=== PATIENT | male | born 2000 | race Caucasian/White ===

== ENCOUNTER 2025-06-10 21:35 | Emergency (ER) | payer BC, SELFPAY ==
--- NOTE | ~2025-06-10 | CT_ITS ---
CT abdomen pelvis wo con INDICATION:MIDDLE LOWER abdo pain/migrating downward . COMPARISON: None. TECHNIQUE: Axial 2.5 mm images of the abdomen were obtained without IV or oral contrast. Diagnostic sensitivity is limited due to lack of IV contrast. FINDINGS: The lung bases are clear. The liver parenchyma is unremarkable. No intrahepatic mass or ductal dilatation is evident. The gallbladder is unremarkable. The pancreas and spleen are normal in appearance. The adrenal glands are symmetric in size. The kidneys are unremarkable. No intrarenal stones are noted. There is no hydronephrosis. Evaluation of the stomach and bowel loops are limited due to lack of oral contrast. There is an appendicolith at the base of the appendix. Thickened edematous appendix measures 12.6 mm consistent with acute appendicitis. No free air or free fluid. The bladder and rectum are normal. No free intraperitoneal fluid or air is evident. There is no significant retroperitoneal lymphadenopathy. The aorta, visceral vessels and renal arteries demonstrate normal caliber. The lower thoracic and lumbar vertebrae are in normal alignment. IMPRESSION: Acute appendicitis. All CT scans at this facility are performed using low dose modulation techniques as appropriate to perform exam including the following: automated exposure control; use of iterative reconstruction technique; adjustment of the mA and/or kV according to patient size (this includes techniques or standardized protocols for targeted exams where dose is matched to indication/reason for exam). Reviewed, dictated and finalized at location S. IMPRESSION: Acute appendicitis. All CT scans at this facility are performed using low dose modulation techniqu es as appropriate to perform exam including the following: automated exposure c ontrol; use of iterative reconstruction technique; adjustment of the mA and/or kV according to patient size (this includes techniques or standardized protocol s for targeted exams where dose is matched to indication/reason for exam).
[2025-06-10 21:35] VITALS: BP 134/75; PULSE 94; RESP 20; TEMP 36.8; O2SAT 100
--- NOTE | 2025-06-10 21:38 | ED_ITS ---
HPI - General Adult General Chief complaint: Abdominal Pain Stated complaint: ABDOMINAL PAIN Time Seen by Provider: 06/10/25 21:38 Related Data Allergies Allergy/AdvReac Type Severity Reaction Status Date / Time Penicillins Allergy Unknown Pruritic Verified 05/24/18 10:22 rash PMFSH Social History Social History Smoking status: Never smoker Alcohol intake: never Discharge Plan Discharge Clinical Impression: Diverticulitis Patient Disposition: Home Condition: Stable Instructions: Antibiotic Form Patient Language: Mongolian Follow-up/Referrals: UNKNOWN,DOCTOR [Primary Care Provider]
--- NOTE | 2025-06-10 21:38 | ED_ITS ---
HPI - Abdominal Pain General Chief Complaint: Abdominal Pain Stated Complaint: ABDOMINAL PAIN Time Seen by Provider: 06/10/25 21:38 Source: patient Mode of arrival: ambulatory Limitations: no limitations History of Present Illness HPI narrative: Patient is a 24-year-old male with a 1 day history of abdominal pain that has started in the upper abdomen has worked his way down to the lower abdomen at this time. Associated nausea due to pain. No history of kidney stones. No prior abdomen surgeries. Normal bowel movement history in the past 24 hours. MD elicited complaint: abdominal pain Pertinent past history: none Onset (ago): day(s) (One) Pain Consistency: constant Location: diffuse, epigastric, periumbilical and suprapubic Severity: severe Pain scale (0-10): 8 Quality: cramping Radiation: none Migration to: suprapubic Exacerbating factors: nothing Relieving factors: nothing Context: confirms other (Patient having migrating abdominal pain from the upper to the lower abdomen which is getting worse at this time) Associated symptoms: nausea Treatments prior to arrival: other (None) Related Data Allergies Allergy/AdvReac Type Severity Reaction Status Date / Time Penicillins Allergy Unknown Pruritic Verified 06/10/25 22:30 rash Review of Systems 2 Review of Systems: All systems reviewed & are unremarkable except as noted in HPI and below Constitutional: Constitutional: Reports no additional constitutional complaints Eyes: Eyes: Reports no additional eye complaints ENT: Reports system reviewed and no additional complaints, except as documented Cardiovascular: Cardiovascular: Reports no additional cardiovascular complaints Respiratory: Respiratory: Reports no additional respiratory complaints Gastrointestinal: Gastrointestinal: Reports no additional gastrointestinal complaints Genitourinary: Genitourinary: Reports no additional male genitourinary complaints Musculoskeletal: Musculoskeletal: Reports no additional musculoskeletal complaints Integumentary/Breasts: Skin/Breast: Reports system reviewed and no additional complaints, except as docu Neurologic: Reports system reviewed and no additional complaints, except as documented Psychiatric: Psychiatric: Reports no additional psychiatric complaints Endocrine: Endocrine: Reports no additional endocrine complaints Hematologic/Lymphatic: Hematologic/Lymphatic: Reports no additional hematologic/lymphatic complaints Allergic/Immunologic: Allergic/Immunologic: Reports no additional allergic/immunologic complaints PMFSH Social History Social History Smoking status: Never smoker Alcohol intake: never Exam 2 Const: General: ill appearing Nutritional Appearance: well nourished O rientation/consciousness: patient oriented x3 Limitations: no limitations HENMT: Head: normal to inspection Ears: external ears normal F luz/Nose/Sinus: Normal external nose present Eyes: Conjunctivae: conjunctivae normal Pupils: Equal, round and reactive pupils present EOM: EOMs intact bilaterally Neck: Neck: normal visual inspection Chest: Chest palpation & inspection: normal inspection of the chest Resp: Effort & Inspection: normal respiratory effort and not labored A uscultation: clear to auscultation bilaterally Cardio: Rate: regular rate Rhythm: regular rhythm Heart sounds: no murmurs GI: Inspection: non-distended GI Palp: Yes Soft to palpation, Yes Tenderness to palpation present (GI) (Diffuse and specifically epigastric and suprapubic), Yes Guarding due to palpation present (GI), No Rigid due to palpation, No Hernia present, No Palpable mass present and Yes Rebound tenderness present Auscultation: bowels sounds not normal and Hypoactive bowel sounds present : General: Yes bladder normal to palpation Back/Spine/Pelvis: Back: no CVA tenderness Skin: General skin exam: normal color Rashes: no rashes Wounds: no wounds Neuro: General: patient oriented x3, moves all extremities and no meningeal signs Extrem: General: normal to inspection, no clubbing, cyanosis or edema and no pedal edema Psych: Mental Status: mental status grossly normal Affect: normal affect Attitude: cooperative Course Vital Signs Vital signs: Vital Signs Temperature 36.8 C 06/10/25 21:35 Pulse Rate 94 06/10/25 21:35 Respiratory Rate 20 06/10/25 21:35 Blood Pressure 134/75 06/10/25 21:35 Pulse Oximetry 100 06/10/25 21:35 Oxygen Delivery Room Air 06/10/25 21:35 Temperature 36.8 C 06/10/25 21:35 Pulse Rate 94 06/10/25 21:35 Respiratory Rate 20 06/10/25 21:35 Blood Pressure 134/75 06/10/25 21:35 Pulse Oximetry 100 06/10/25 21:35 Oxygen Delivery Room Air 06/10/25 21:35 MDM - Abdominal Pain MDM Narrative Medical decision making narrative: Patient is a 24-year-old male with abdominal pain this evening getting worse. We will do a GI workup at this time. Pain control. IV fluids. Transfer to higher level medical care for appendicitis repair. Lab Data Attestation: I reviewed the patient's lab results. 06/10/25 21:50 06/10/25 21:50 Labs: Lab Results 06/10/25 06/10/25 Range/Units 21:50 22:32 WBC 16.5 H (4.8-10.8) K/mm3 RBC 5.45 (4.70-6.10) M/mm3 Hgb 16.0 (14.0-18.0) g/dL Hct 46.9 (40.0-54.0) % MCV 86.1 (78.0-102.0) fL MCH 29.4 (27.0-31.0) pg MCHC 34.1 (32-36) g/dL RDW 11.8 (11.6-14.4) % Plt Count 236 (150-420) K/mm3 MPV 9.5 (8.7-11.0) fl Immature Gran % (Auto) 0.4 H (0.0-0.0) % Neut % (Auto) 81.8 H (50.0-70.0) % Lymph % (Auto) 11.9 L (18.0-42.0) % [place] % (Auto) 5.5 (2.0-11.0) % Eos % (Auto) 0.2 L (1.0-6.0) % Baso % (Auto) 0.2 (0.0-1.0) % Lymph # (Auto) 1.97 (1.10-4.50) K/mm3 [place] # (Auto) 0.91 H (0.10-0.90) K/mm3 Eos # (Auto) 0.03 (0.02-0.50) K/mm3 Baso # (Auto) 0.04 (0.00-0.10) K/mm3 Abs Immat Gran (auto) 0.07 H (0.00-0.00) K/mm3 Absolute Neuts (auto) 13.49 H (1.70-7.20) K/mm3 Absolute Nucleated RBC 0.00 (0.00-0.00) K/mm3 Nucleated RBC % 0.0 (0-0.0) % PT 11.0 (9.50-12.1) Seconds INR 1.0 APTT 27.0 (23.9-30.70) Sec Sodium 141 (137-145) mmol/L Potassium 3.4 (3.4-5.0) mmol/L Chloride 101 (98-107) mmol/L Carbon Dioxide 27 (22-30) mmol/L Anion Gap 13 H (4-12) mmol/L BUN 19 (9-20) mg/dL Creatinine 1.13 (0.7-1.3) mg/dL Estim Creat Clear Calc 94 ml/min Estimated GFR > 60 (59 - ) Glucose 118 H (65-110) mg/dL Calculated Osmolality 295 (285-295) mOsm/kg Lactic Acid 1.8 (0.4-2.0) mmol/L Calcium 10.5 H (8.4-10.2) mg/dL Total Bilirubin 1.0 (0.2-1.3) mg/dL AST 30 (17-59) U/L ALT 25 (6-50) U/L Alkaline Phosphatase 86 (38-126) U/L Total Protein 9.0 H (6.3-8.2) g/dL Albumin 5.2 H (3.5-5.1) g/dL Lipase 77 (23-300) U/L Urine Color Pending Urine Appearance Pending Urine pH Pending Ur Specific [place] Pending Urine Protein Pending Urine Glucose (UA) Pending Urine Ketones Pending Ur Blood (Man) Pending Urine Nitrate Pending Urine Bilirubin Pending Urine Urobilinogen Pending Leukocyte Esterase Rfl Pending Imaging Data Attestation: I personally reviewed and interpreted this imaging study as follows: Radiologist's impression: ITS Impressions Abdomen/Pelvis CT 06/10/25 22:25 IMPRESSION: Acute appendicitis. All CT scans at this facility are performed using low dose modulation techniques as appropriate to perform exam including the following: automated exposure control; use of iterative reconstruction technique; adjustment of the mA and/or kV according to patient size (this includes techniques or standardized protocols for targeted exams where dose is matched to indication/reason for exam). Discharge Plan Discharge Clinical Impression: Acute appendicitis Qualifiers: Acute appendicitis type: unspecified acute appendicitis type Qualified Code(s): K35.80 - Unspecified acute appendicitis Patient Disposition: Acute Care Hospital Condition: Stable Patient Language: Syriac Follow-up/Referrals: UNKNOWN,DOCTOR [Non-Staff] Time of Disposition: :40
[2025-06-10] MEDS: KETOROLAC 30 MG/ML VIAL (*BKC) IV PUSH (21:57)
[2025-06-10] MEDS: SODIUM CHLORIDE 0.9% IV 1,000 ML 999 ML IV CONT (21:57)
[2025-06-10 21:59] LABS: Hematocrit 46.9 % (40.0-54.0); Hemoglobin 16.0 g/dL (14.0-18.0); Immature Granulocyte Percent A 0.4 % (0.0-0.0); Lymphocytes Absolute Auto 1.97 K/mm3 (1.10-4.50); Mean Corpuscular HGB Conc 34.1 g/dL (32-36); Mean Corpuscular Hemoglobin 29.4 pg (27.0-31.0); Mean Corpuscular Volume 86.1 fL (78.0-102.0); Nucleated Red Blood Cells Absolute Auto 0.00 K/mm3 (0.00-0.00); Nucleated Red Blood Cells Perc 0.0 % (0-0.0); Platelet Count Result 236 K/mm3 (150-420); Red Blood Count 5.45 M/mm3 (4.70-6.10); White Blood Count 16.5 K/mm3 (4.8-10.8)
--- NOTE | 2025-06-10 22:08 | PC.NURSE ---
PT RETURNED FROM CT SCAN VIA WHEELCHAIR PER SIX COLOR PRESS OPERATOR. SPOUSE AT BEDSIDE. CALL LIGHT WITHIN REACH.
[2025-06-10 22:12] LABS: Lipase 77 U/L (23-300)
[2025-06-10 22:13] LABS: Alanine Aminotransferase 25 U/L (6-50); Albumin Level 5.2 g/dL (3.5-5.1); Alkaline Phosphatase 86 U/L (38-126); Anion Gap 13 mmol/L (4-12); Aspartate Amino Transferase 30 U/L (17-59); Bilirubin,Total 1.0 mg/dL (0.2-1.3); Blood Urea Nitrogen 19 mg/dL (9-20); Calcium 10.5 mg/dL (8.4-10.2); Carbon Dioxide 27 mmol/L (22-30); Chloride 101 mmol/L (98-107); Estimated CRCL calculation 94 ml/min; Estimated Glomerular Filt Rate > 60; Glucose 118 mg/dL (65-110); Osmolality Calculated 295 mOsm/kg (285-295); Potassium 3.4 mmol/L (3.4-5.0); Sodium 141 mmol/L (137-145); Total Protein 9.0 g/dL (6.3-8.2)
[2025-06-10 22:15] LABS: INR 1.0; Partial Thromboplastin Time 27.0 Sec (23.9-30.70); Prothrombin Time 11.0 Seconds (9.50-12.1)
[2025-06-10 22:37] LABS: Add Urine Microscopic? NO; Appearance Urine Clear (Clear); Glucose Urine UA Negative (Negative); Leukocyte Esterase Ur Negative LEU/UL (Negative); Nitrate Urine Negative (Negative); Specific Grav Ur 1.020 (1.010-1.020)
[2025-06-10] MEDS: metroNIDAZOLE 500 MG/ISO 100ML 500 MG/100 ML BAG 100 MG IVPB (22:54)
--- NOTE | 2025-06-10 23:02 | PC.NURSE ---
abxs geno, see MAR. pt spouse and mother in law at bedside. pt reports pain improved since emt intermediate earlier. call light within reach.
[2025-06-10] MEDS: CIPROFLOXACIN 400 MG/D5W 200ML 200 ML 200 MG IVPB (23:54)
--- NOTE | 2025-06-11 00:11 | PM.IMHP ---
H&P: HPI History of Present Illness Date/Time: 06/11/25 Chief Complaint: Acute appendicitis Narrative: Patient is a 24-year-old white male presented with mid abdominal pain for 24hours. He went to the emergency room at [facility] where workup [place] [id number]. He did have a CT scan abdomen pelvis which showed a dilated appendix with thickened wall and then appendicolith within the proximal portion of the appendix near the base. There is no evidence of perforation and no periappendiceal abscess. Patient is otherwise healthy is not on the medications. He has not had previous abdominal surgery. Review of Systems Review of Systems: The remainder of the review of systems to include constitutional, HEENT, cardiovascular, respiratory, GI, , integumentary, musculoskeletal, endocrine, immunologic, hematologic, psychiatric, and neurologic are all negative except for which is mentioned above in the HPI. [facility] Social History Social History Smoking status: Never smoker Alcohol intake: never Meds Home Medications and Allergies Allergies Allergy/AdvReac Type Severity Reaction Status Date / Time Penicillins Allergy Unknown Pruritic Verified 06/10/25 22:30 rash Vital Signs Vital Signs - 24 hr 06/10/25 21:35 Temperature 36.8 C Pulse Rate 94 Respiratory Rate 20 Blood Pressure 134/75 Pulse Oximetry 100 Oxygen Delivery Room Air Exam Const: General: comfortable and no acute distress HENMT: Ears: TM's normal bilaterally Face/Nose/Sinus: Normal nares present Mouth: Yes moist mucous membranes Eyes: General: appearance normal, both eyes and all related structures Sclera: sclerae normal Pupils: Equal, round and reactive pupils present EOM: EOMs intact bilaterally Neck: Neck: supple and no JVD Resp: Effort & Inspection: normal respiratory effort Auscultation: clear to auscultation bilaterally Cardio: Rate: regular rate Rhythm: regular rhythm GI: Other: Soft and nondistended. Patient has moderately severe tenderness in the right lower quadrant over McBurney's point. There is voluntary guarding. No generalized peritoneal signs. No ventral hernias or masses. : Male General Exam: Yes normal external exam Skin: General skin exam: normal color and no rashes or lesions noted Neuro: General: gait normal Speech: normal speech Motor exam (neuro): 5/5 motor strength present throughout Sensory Exam: normal sensation Extrem: General: normal to inspection Psych: Mental Status: mental status grossly normal Affect: normal affect H&P: Results Labs Labs: Short CBC 06/10/25 Range/Units 21:50 WBC 16.5 H (4.8-10.8) K/mm3 Hgb 16.0 (14.0-18.0) g/dL Hct 46.9 (40.0-54.0) % Plt Count 236 (150-420) K/mm3 BMP 06/10/25 21:50 Sodium 141 Potassium 3.4 Chloride 101 Carbon Dioxide 27 BUN 19 Creatinine 1.13 Glucose 118 H Calcium 10.5 H Liver Function 06/10/25 Range/Units 21:50 Total Bilirubin 1.0 (0.2-1.3) mg/dL AST 30 (17-59) U/L ALT 25 (6-50) U/L Alkaline Phosphatase 86 (38-126) U/L Albumin 5.2 H (3.5-5.1) g/dL Urine 06/10/25 Range/Units 22:32 Urine Color Yellow (Yellow) Urine Appearance Clear (Clear) Urine pH 7.0 (5.0-8.0) Ur Specific [place] 1.020 (1.010-1.020) Urine Protein Negative (Negative) Urine Glucose (UA) Negative (Negative) Imaging CT scan - abdomen: Radiologist's impression: CT Scan Report Signed Patient: Alfonso Moran : 2000 MR#: [id number] Age: 24 Acct:[id number] [facility] Date: 06/10/[address]: Ordering Physician: Ruy Edwards MD Date of Service: 06/10/25 Procedure(s): CT abdomen pelvis wo con Accession Number(s): [id number] cc: BEDSPREAD FOLDER PHYSICIAN; Ruy Edwards MD~ CT abdomen pelvis wo con INDICATION:MIDDLE LOWER abdo pain/migrating downward . COMPARISON: None. TECHNIQUE: Axial 2.5 mm images of the abdomen were obtained without IV or oral contrast. Diagnostic sensitivity is limited due to lack of IV contrast. FINDINGS: The lung bases are clear. The liver parenchyma is unremarkable. No intrahepatic mass or ductal dilatation is evident. The gallbladder is unremarkable. The pancreas and spleen are normal in appearance. The adrenal glands are symmetric in size. The kidneys are unremarkable. No intrarenal stones are noted. There is no hydronephrosis. Evaluation of the stomach and bowel loops are limited due to lack of oral contrast. There is an appendicolith at the base of the appendix. Thickened edematous appendix measures 12.6 mm consistent with acute appendicitis. No free air or free fluid. The bladder and rectum are normal. No free intraperitoneal fluid or air is evident. There is no significant retroperitoneal lymphadenopathy. The aorta, visceral vessels and renal arteries demonstrate normal caliber. The lower thoracic and lumbar vertebrae are in normal alignment. IMPRESSION: Acute appendicitis. All CT scans at this facility are performed using low dose modulation techniques as appropriate to perform exam including the following: automated exposure control; use of iterative reconstruction technique; adjustment of the mA and/or kV according to patient size (this includes techniques or standardized protocols for targeted exams where dose is matched to indication/reason for exam). Reviewed, dictated and finalized at location S. Please be advised this is a medical document. It is intended for [id number] communication. It is written in medical language and may contain unfamiliar abbreviations or verbiage. Medical documents are intended to carry relevant information, facts as evident, and the clinical opinion of the practitioner at the time of the encounter. This report may have been done utilizing a voice recognition system. Attempts have been made to correct errors. However, there may be uncorrected grammatical, spelling, and recognition errors present. The file time of this note does not necessarily represent the time of service. Dictated By: Abner Galaviz MD 06/10/252224 Signed By: <Electronically signed by Abner Galaviz MD in OV> 06/10/252226 Assessment and Plan Assessment and plan (1) Acute appendicitis: Qualifiers: Acute appendicitis type: unspecified acute appendicitis type Qualified Code(s): K35.80 - Unspecified acute appendicitis Code(s): K35.80 - Unspecified acute appendicitis Status: Acute Assessment and Plan: Patient is transferred from [facility] Emergency Room to [facility] for definitive surgical management. He appears to have an acute appendicitis due to impacted appendicolith within the proximal portion of the appendix. Presently there is no evidence of perforation or abscess. Patient will be given pain medications and IV with IV fluids. Broad-spectrum IV antibiotic coverage to cover enteric organisms. He will need to go to the operating room the morning for an urgent laparoscopic appendectomy possible versus open appendectomy. Risks, benefits, indications, and expected outcomes were discussed in detail with the patient and/or family. They understand and I have answered all other questions. They wished to proceed with surgery as outlined above.
[2025-06-11 00:36] VITALS: BP 111/57; PULSE 79; RESP 18; TEMP 36.6; O2SAT 100
[2025-06-11] MEDS: MORPHINE SULFATE (*CRX) 4 MG/ML INJ IV PUSH (00:41)
--- NOTE | 2025-06-11 00:56 | PC.NURSE ---
update called to Maxwell () about surgery tonight and pain medications given to patient prior to departure from unit.
--- NOTE | 2025-06-14 17:08 | PC.NURSE ---
preliminary blood cultures x2 reviewed. no growth in 24 hours.
--- NOTE | 2025-06-15 13:27 | PC.NURSE ---
Addendum entered by Ana Larsen RN 06/15/25 13:28: Addendum: Preliminary blood culture report; no growth in 48 hours. Original Note: Preliminary blood culture report; no growth in 24 hours.
--- NOTE | 2025-06-18 19:07 | PC.NURSE ---
FINAL BLOOD CULTURE NO GROWTH FOR 5 DAYS
--- NOTE | 2025-06-20 12:36 | PC.NURSE ---
FINAL BLOOD CULTURE REPORT; Cutibacterium acnes CULTURE REPORT FAXED TO [address] AT [phone]
== END 2025-06-11 00:36 | disposition short-term general hospital (02) ==
PROVIDERS: Emergency Provider Emergency Medicine; Referring Provider Family Medicine
DX: K35.80 Unspecified acute appendicitis (principal)
CPT/HCPCS: 36415; 74176; 80053; 81003; 83605; 83690; 85025; 85610; 85730; 96365; 96367; 96375; 96376; 99285; J0744; J1836; J1885; J2270; J7030

== ENCOUNTER 2025-06-11 01:37 | Observation (INO) | payer BC, SELFPAY ==
[2025-06-11] VITALS (14 sets, daily range): BP systolic 101–128; BP diastolic 44–74; PULSE 65–113; RESP 11–18; TEMP 36.4–37.7; O2SAT 97–100; BMI 22.2
--- OUTSIDE RECORDS SUMMARY | 2025-06-11 01:40 | XMS_ITS | Clinical Summary ---
Author Organization [facility] Address [address] [place] [address] Care Team Providers Care Mechanical Engineering Technician Name Role Phone Unavailable Primary Care Provider Unavailabl e Allergies Active Allergy Reactions Criticality Noted Date Comments Penicillins Hives High 11/15/2022 Medications No known medications Active Problems No known active problems Encounters Date Type Department Care Team Description 06/07/2025 1:15 PM CDT Office Visit [facility] [address] [place] [address] [place] [address] Aakash Aragon NP Encounter for PPD test (Primary Dx) 05/12/2025 External Device Data [facility] ABSTRACTION Provider, Abstract from Last 3 Months Immunizations Immunization Administration Dates Next Due (ADACEL/BOOSTRIX)(10 YR UP) TDAP VACCINE, 0.5ML, IM 06/10/2024 Skin Test TB 06/07/2025,06/30/2024,06/10/2024 Social History Tobacco Use Types Packs/Day Years Used Date Smoking Tobacco: Never Assessed Smokeless Tobacco: Never Tobacco Cessation:Counseling Given: Not Answered Sex and Gender Information Value Date Recorded Sex Assigned at Not on file Legal Sex Male 8:27 AM CDT Gender Identity Not on file Sexual Orientation Not on file Last Filed Vital Signs Vital Sign Reading Time Taken Comments Blood Pressure 121/81 06/07/2025 12:58 PM CDT Pulse 70 06/07/2025 12:58 PM CDT Temperature 36.7 C (98 F) 06/07/2025 12:58 PM CDT Respiratory Rate 18 06/07/2025 12:58 PM CDT Oxygen Saturation 98% 06/07/2025 12:58 PM CDT Inhaled Oxygen Concentration - - Weight 72.1 kg (159 lb) 06/07/2025 12:58 PM CDT Height 180.3 cm (5' 11) 06/07/2025 12:58 PM CDT Body Mass Index 22.18 06/07/2025 12:58 PM CDT Plan of Treatment Health Maintenance Due Date Last Done Comments HPV VACCINES (1 - Male 3-dose series) 12/03/2015 HEPATITIS B VACCINES (1 of 3 - 19+ 3-dose series) 03/2020 INFLUENZA VACCINE (#1) 2025 DTAP/TDAP/TD VACCINES (2 - Td or Tdap) 06/10/2034
--- NOTE | 2025-06-11 02:09 | P.HP_ITS ---
H&P: HPI History of Present Illness Date/Time: 06/11/25 02:09 Chief Complaint: Acute appendicitis Narrative: Patient is a 24-year-old male who presented to the [facility] Emergency Room with a less than 1 day history of upper mid abdominal pain which localized to the right lower quadrant the abdomen. Some nausea but no emesis. White blood cell count was [address]. He was afebrile. CT scan abdomen pelvis showed a dilated appendix up to 12mm in diameter. Thickening of the wall the appendix was noted and there was an appendicolith impacted within the proximal portion of the appendix. No perforation was seen and no periappendiceal abscess was noted. Patient was transferred from [facility] Emergency Room to [facility] for definitive surgical management. Review of Systems Review of Systems: The remainder of the review of systems to include constitutional, HEENT, cardi ovascular, respiratory, GI, , integumentary, musculoskeletal, endocrine, immunologic, hematologic, psychiatric, and neurologic are all negative except for which is mentioned above in the HPI. [facility] Social History Social History Smoking status: Never smoker Alcohol intake: never Meds Home Medications and Allergies Allergies Allergy/AdvReac Type Severity Reaction Status Date / Time Penicillins Allergy Unknown Pruritic Verified 06/10/25 22:30 rash Vital Signs Vital Signs - 24 hr 06/11/25 01:22 Temperature 36.6 C Pulse Rate 78 Respiratory Rate 17 Blood Pressure 128/67 Pulse Oximetry 100 Exam Const: General: comfortable and no acute distress HENMT: Ears: TM's normal bilaterally Face/Nose/Sinus: Normal nares present Mouth: Yes moist mucous membranes Eyes: General: appearance normal, both eyes and all related structures Sclera: sclerae normal Pupils: Equal, round and reactive pupils present EOM: EOMs intact bilaterally Neck: Neck: supple and no JVD Resp: Effort & Inspection: normal respiratory effort Auscultation: clear to auscultation bilaterally Cardio: Rate: regular rate Rhythm: regular rhythm GI: Other: Abdomen is soft and nondistended. He has some moderately severe tenderness to palpation in the suprapubic and right lower quadrant regions of the abdomen. There is some voluntary guarding. No generalized peritoneal signs are noted. No masses are noted and no ventral hernias are noted. No surgical scars on the abdomen. : Male General Exam: Yes normal external exam Skin: General skin exam: normal color and no rashes or lesions noted Neuro: General: gait normal Speech: normal speech Motor exam (neuro): 5/5 motor strength present throughout Sensory Exam: normal sensation Extrem: General: normal to inspection Psych: Mental Status: mental status grossly normal Affect: normal affect H&P: Results Imaging CT scan - abdomen: Radiologist's impression: CT Scan Report Signed Patient: Alfonso Moran : 2000 MR#: [id number] Age: 24 Acct:[id number] Loc: [facility] ADM Date: 06/10/[address]: Ordering Physician: Ruy Edwards MD Date of Service: 06/10/25 Procedure(s): CT abdomen pelvis wo con Accession Number(s): [id number] cc: ROBOTICS TESTING TECHNICIAN PHYSICIAN; Ruy Edwards MD~ CT abdomen pelvis wo con INDICATION:MIDDLE LOWER abdo pain/migrating downward . COMPARISON: None. TECHNIQUE: Axial 2.5 mm images of the abdomen were obtained without IV or oral contrast. Diagnostic sensitivity is limited due to lack of IV contrast. FINDINGS: The lung bases are clear. The liver parenchyma is unremarkable. No intrahepatic mass or ductal dilatation is evident. The gallbladder is unremarkable. The pancreas and spleen are normal in appearance. The adrenal glands are symmetric in size. The kidneys are unremarkable. No intrarenal stones are noted. There is no hydronephrosis. Evaluation of the stomach and bowel loops are limited due to lack of oral contrast. There is an appendicolith at the base of the appendix. Thickened edematous appendix measures 12.6 mm consistent with acute appendicitis. No free air or free fluid. The bladder and rectum are normal. No free intraperitoneal fluid or air is evident. There is no significant retroperitoneal lymphadenopathy. The aorta, visceral vessels and renal arteries demonstrate normal caliber. The lower thoracic and lumbar vertebrae are in normal alignment. IMPRESSION: Acute appendicitis. All CT scans at this facility are performed using low dose modulation techniques as appropriate to perform exam including the following: automated exposure control; use of iterative reconstruction technique; adjustment of the mA and/or kV according to patient size (this includes techniques or standardized protocols for targeted exams where dose is matched to indication/reason for exam). Reviewed, dictated and finalized at location S. Please be advised this is a medical document. It is intended for [id number]-lpvi communication. It is written in medical language and may contain unfamiliar abbreviations or verbiage. Medical documents are intended to carry relevant information, facts as evident, and the clinical opinion of the practitioner at the time of the encounter. This report may have been done utilizing a voice recognition system. Attempts have been made to correct errors. However, there may be uncorrected grammatical, spelling, and recognition errors present. The file time of this note does not necessarily represent the time of service. Dictated By: Abner Galaviz MD 06/10/250 Signed By: <Electronically signed by Abner Galaviz MD in OV> Assessment and Plan Assessment and plan (1) Acute appendicitis: Qualifiers: Acute appendicitis type: unspecified acute appendicitis type Qualified Code(s): K35.80 - Unspecified acute appendicitis Code(s): K35.80 - Unspecified acute appendicitis Status: Acute Assessment and Plan: Patient appears to have acute appendicitis. His transferred from [facility] Emergency room to the Surgical for [facility]. Will place him on Zosyn for IV antibiotics and keeping hydrated with lactated Ringer's. He is to be kept NPO to surgery in the morning. Okay to have some morphine tonight for pain. Plan on proceeding with a urgent laparoscopic appendectomy in the morning. Risks, benefits, indications, and expected outcomes were discussed in detail with the patient and/or family. They understand and I have answered all other questions. They wished to proceed with surgery as outlined above.
--- NOTE | 2025-06-11 02:10 | ADMGEN ---
This patient, Alfonso Moran, was admitted to 2 Medical Room 249-01. Patient/family oriented to hospital policies and general routines including ID bracelet, bed and alarms, visiting hours, pain management, procedures, bathroom and other care routines, personal items, smoking policy, room service/diet, and visiting hours. Information on how to activate the Rapid Response Team has been discussed. Patient/Family are encouraged to report perceived risks to care and to ask questions if they do not understand what they are told or what they should do.
[2025-06-11] MEDS: LACTATED RINGERS 1,000 ML 125 ML IV CONT (02:36)
[2025-06-11] MEDS: PIPERACILLIN/TAZOBACTAM SOD 3.375 GM in SODIUM CHLORIDE 0.9% IV 50 ML 100 ML IVPB ×2 (02:37→08:40)
[2025-06-11] MEDS: MORPHINE SULFATE (*CRX) 4 MG/ML INJ IV PUSH ×3 (03:26→08:02)
[2025-06-11 04:17] LABS: Hematocrit 39.7 % (42.0-52.0); Hemoglobin 13.7 g/dL (14.0-18.0); Mean Corpuscular HGB Conc 34.5 g/dl (32-36); Mean Corpuscular Hemoglobin 30.0 pg (26-34); Mean Corpuscular Volume 87.1 fl (80-100); Platelet Count Result 172 k/mm3 (150-375); Red Blood Count 4.56 M/mm3 (4.6-6.20); White Blood Count 12.0 K/mm3 (4.5-10.0)
[2025-06-11 04:41] LABS: Anion Gap 9 mmol/L (4-12); Blood Urea Nitrogen 16 mg/dL (9-20); Calcium 9.0 mg/dL (8.4-10.2); Carbon Dioxide 26 mmol/L (22-30); Chloride 104 mmol/L (98-107); Estimated CRCL calculation 100 ml/min; Estimated Glomerular Filt Rate > 60; Glucose 93 mg/dL (65-110); Potassium 3.5 mmol/L (3.4-5.0); Sodium 139 mmol/L (137-145)
--- NOTE | 2025-06-11 08:05 | PC.NURSE ---
pt picked up by surgery RN and transported via wheelchair to surgery
--- NOTE | 2025-06-11 08:40 | S_PTH ---
PATIENT: Alfonso Moran LOC: [id number] U#:[id number] AGE/SX: 24/M ROOM: 249 RE06/11/[address]: Gerson Sterling MD : 2000 BED: 01 DIS: 06/11/2025 SPEC #: [id number] RECD: 06/11/25 11:38 STATUS: DYAN REQ #: [id number] ASHLEE: 06/11/25 08:[address]: Gerson Sterling DEPT: [facility] Surgical RECD BY: Lizbeth Castle ENTERED: 06/11/25 11:38 SP TYPE: Surgical OTHR DR: MANAGER JAVA PHYSICIAN Tissues: A - Appendix Procedures: Hematoxylin and Eosin Stain Gross and Microscopic Level 3
--- NOTE | 2025-06-11 08:58 | WPDHPUPDATE1 ---
History and Physical Update Update Date/Time: 06/11/25 08:58 History and Physical has been reviewed, including an updated exam of the patient. There are NO changes in the patient's condition. Risks, benefits, and alternatives have been discussed and questions answered. Patient agrees to proceed with procedure.
--- NOTE | 2025-06-11 09:01 | WPDANESEPPF ---
Anes - Initial Pre Proc Eval Procedure: Operation Date: 06/11/25 08:30 Proposed Procedures p Laparoscopic Appendectomy - Gerson Sterling MD Date/Time: 06/11/25 09:01 Surgeon: Gerson Sterling MD Pre Op Diagnosis: Acute Appendicitis Patient Data Age: 24 Gender: M Height: 1.8 m Weight: 72.3 kg Last Vital Signs Temp 99.9 F H 06/11/25 08:38 Pulse 100 06/11/25 08:38 Resp 16 06/11/25 04:41 BP 126/74 06/11/25 08:38 Pulse Ox 100 06/11/25 08:38 O2 Del Method Room Air 06/11/25 08:38 Allergies Allergy/AdvReac Type Severity Reaction Status Date / Time Penicillins Allergy Unknown Pruritic Verified 06/11/25 08:36 rash Home Medications ?Medication ?Instructions ?Recorded ?Confirmed ?Type No Home Medications 06/11/25 06/11/25 History Laboratory Tests 06/11/25 03:53 WBC 12.0 H K/mm3 (4.5-10.0) RBC 4.56 L M/mm3 (4.6-6.20) Hgb 13.7 L g/dL (14.0-18.0) Hct 39.7 L % (42.0-52.0) MCV 87.1 fl (80-100) MCH 30.0 pg (26-34) MCHC 34.5 g/dl (32-36) RDW 11.9 % (11.5-14.5) Plt Count 172 k/mm3 (150-375) MPV 9.8 fl (7.4-10.4) Sodium 139 mmol/L (137-145) Potassium 3.5 mmol/L (3.4-5.0) Chloride 104 mmol/L (98-107) Carbon Dioxide 26 mmol/L (22-30) Anion Gap 9 mmol/L (4-12) BUN 16 mg/dL (9-20) Creatinine 1.03 mg/dL (0.7-1.3) Estim Creat Clear Calc 100 ml/min Estimated GFR > 60 (59 - ) Glucose 93 mg/dL (65-110) Calcium 9.0 mg/dL (8.4-10.2) Patient hx anesthesia problems: none Family hx anesthesia problems: none Results Review: All pre-operative results and documents have been reviewed as part of the pre-operative evaluation. [facility] Family History Family History (Updated 06/11/25 @ 02:40 by Shahnaz Garcia RN) Other Unknown family medical history Social History Social History Smoking status: Never smoker Alcohol intake: current Substance use: never Substance use type: does not use Lack of Transportation: No Lack of Food: Never True Current Housing: I Have Housing Concerned About Future Housing: No Difficulty Paying Gas/Electric Bills: No Difficulty Paying for Meds: No Currently Unemployed: No Education: Bachelor's Degree Difficulty w/ Childcare or Family Care: No Spiritual care concerns: No Anes - Eval Final PreProcedure Day of Procedure 06/11/25 09:01 Patient weight: normal Heart: regular rate and rhythm Lungs: clear to auscultation Airway: Mallampati scale class II Neurological: alert and oriented Last oral intake: >/= 8 hours ASA classification: II Emergent: no Anesthetic plan: proceed Anesthesia type and monitoring: general ETT and standard monitoring Results Review: All pre-operative results and documents have been reviewed as part of the pre-operative evaluation. Informed Consent: The patient's anesthetic plan and its attendant risks and benefits were discussed with the patient/family/POA. Questions were solicited and answers provided to the satisfaction of the patient/family/POA.
[2025-06-11] MEDS: LACTATED RINGERS 1,000 ML 30 ML IV CONT ×2 (09:15→10:15)
[2025-06-11] MEDS: LIDO 1%/EPINEPHRINE 1:100,000 20 ML VIAL INFILTRATE (09:36)
--- NOTE | 2025-06-11 10:19 | P.OP_ITS ---
Procedure Note - Detailed Date of Procedure 06/11/25 Pre-op Diagnosis Acute Appendicitis Post-op Diagnosis Same Procedure Performed Laparoscopic appendectomy Surgeon Gerson Sterling MD Lozenge Maker Helper STACIE Fenton Anesthesia General Indications Patient is a 24-year-old male presented to an outside emergency room with a 1 day history of worsening abdominal pain. Localized right lower quadrant the abdomen. Elevated white blood count [address] scan abdomen pelvis showed acute appendicitis without perforation. He presents now for emergent laparoscopic appendectomy. Findings The appendix was acutely inflamed. There was a fibro purulent exudate of covering on the appendix. It was dilated and inflamed. No gross perforation was seen. There is no spillage of enteric contents. No periappendiceal abscess. The base of the appendix was viable. Description of Procedure After informed consent was obtained patient brought to the operating room was placed supine position and general endotracheal anesthesia was administered. An orogastric tube was placed decompress the stomach and a Ann catheter was placed decompress the bladder. The abdomen was then prepped and draped usual sterile fashion. A time-out was then performed correctly identifying the patient as well as procedure to be performed. He was already on scheduled IV antibiotics. I 1st entered the abdomen left upper quadrant utilizing a 5mm Optiview port. Once inside the abdomen insufflated to adequate pneumoperitoneum of 15mm of mercury of CO2. I then placed additional trocar ports across the mid lower abdomen. This included a 5mm suprapubic trocar port and a 5mm right lower quadrant trocar port as well as a 12mm periumbilical trocar port all placed under direct visualization. The appendix was easily seen the right lower quadrant. There was some omentum adherent to the appendix. The appendix was acutely inflamed and dilated. The base of the appendix was viable. There was no evidence of perforation or periappendiceal abscess. I was able to hold the appendix in the midportion utilizing laparoscopic grasper. This exposed the base. I then made a defect through the mesoappendix just at the base of the appendix. I then used a blue load to the 45mm Endo-HERVE stapler to divide the appendix flush with the cecum. Two vascular reload to the Endo-HERVE stapler was then used to divide the mesoappendix. The appendix was then placed into an Endo-Catch bag and brought out through the periumbilical trocar port site. It was sent to pathology for examination. I then irrigated out the right lower quadrant the abdomen and the pelvis. I inspected both staple lines and they were hemostatic. After the fluid from the right lower quadrant of the abdomen from the pelvis. I then pulled apart the omentum over the cecum and over the staple lines. I then removed all the trocar ports under direct visualization all port sites appeared hemostatic. The abdomen was then allowed to decompress. I irrigated all the port sites sterile saline solution hemostasis was good. I then closed the 12mm periumbilical trocar port fascial defect utilizing 0 Vicryl suture at the fascial level. The skin edges in all the port sites were then approximated lies in a running subcuticular 4-0 Monocryl suture. The incisions were then cleaned the skin glue was applied. The patient tolerated the procedure well no complications. All sponges, needles, and instrument counts were correct at the end procedure. EBL was _10__cc. The patient was awakened and taken to recovery in stable and satisfactory condition. Implants None Estimated Blood Loss 10 Drains No Packing No Pathology Yes (Appendix to pathology) Complications No immediate complications Condition Stable Disposition PACU [facility] Billing Surgery - Charge Forward: Surgery Billing
--- NOTE | 2025-06-11 16:26 | P.DS_ITS ---
DS: Admitting Diagnosis Discharge Date 06/11/25 Admitting Diagnosis Acute appendicitis DS: Discharge Diagnosis Discharge Diagnosis (1) Acute appendicitis with localized peritonitis, without perforation or abscess: Code(s): K35.30 - Acute appendicitis with localized peritonitis, without perforation or gangrene Status: Acute DS: Summary Hospital Course Reason for hospitalization: Patient is a 24-year-old male who presented to the [facility] Emergency Room with a less than 1 day history of upper mid abdominal pain which localized to the right lower quadrant the abdomen. Some nausea but no emesis. White blood cell count was 72018. He was afebrile. CT scan abdomen pelvis showed a dilated appendix up to 12mm in diameter. Thickening of the wall the appendix was noted and there was an appendicolith impacted within the proximal portion of the appendix. No perforation was seen and no periappendiceal abscess was noted. Patient was transferred from [facility] Emergency Room to [facility] for definitive surgical management. Hospital Course: He was started on broad-spectrum IV antibiotics. He underwent laparoscopic appendectomy by Dr. Sterling on 06/11/25. (See operative note for details) No gross perforation seen during surgery. His diet was advanced as tolerated. His postoperative pain was well controlled and he was tolerating activity later in the afternoon following surgery. He was stable for discharge. Time spent discussing smoking cessation with patient: 3 to 10 minutes Status at Discharge Functional status at discharge: independent ambulation Overall status at discharge: patient is progressing back to baseline Time Spent with Patient Time attestation: Total time spent providing and/or coordinating discharge services: DS: Data Data Completed and Pending Pending studies at discharge: Pending at discharge 06/11/25 08:40 Surgical [PTH] Routine Labs on day of discharge: Labs from last 24 hours 06/11/25 03:53 WBC 12.0 H RBC 4.56 L Hgb 13.7 L Hct 39.7 L MCV 87.1 MCH 30.0 MCHC 34.5 RDW 11.9 Plt Count 172 MPV 9.8 Sodium 139 Potassium 3.5 Chloride 104 Carbon Dioxide 26 Anion Gap 9 BUN 16 Creatinine 1.03 Estim Creat Clear Calc 100 Estimated GFR > 60 Glucose 93 Calcium 9.0 Discharge Plan Discharge Attending physician on discharge: Gerson Sterling Consulting providers: Jesi Ritchie; Jose Marks Discharging Clinician: Gerson Sterling Anticipated Discharge Date/Time: 06/11/25 16:26 Patient Disposition: Home Activity: other - see discharge instructions Diet: as tolerated and regular Wound Care Instructions: other - see discharge instructions Discharge Instructions: May discharge home when stable. Follow up with Dr. Sterling in the office in 2 weeks. Patient to call [phone] for an appointment. May shower in 24hours but do not soak incisions under water for 2 weeks. No lifting more than 10 to 15 lb for 2 weeks. May advance diet as tolerated. No driving for at least 3 days or until no longer taking any narcotic pain medication. Resume all home medications. Prescription for narcotic pain medicines will be sent to the patient's pharmacy if needed. May use Tylenol and/or ibuprofen in addition to or in place of narcotic pain medications for postoperative pain. Patient Instructions: Antibiotic Form Patient Language: Luxembourger Stand Alone Forms: General Discharge Information Follow-up/Referrals: Gerson Sterling MD [Physician, General Surgery] Discharge Medications: New hydrocodone-acetaminophen 5-325 mg tablet 1 - 2 tablet PO Q4H PRN (Reason: pain) Qty: 12 0RF Date of admission: 06/11/25 01:37 Primary Care Provider: PHYSICIAN,CLERICAL ADMINISTRATOR Admitting Provider: Gerson Sterling Attending physician on admission: Gerson Sterling Condition: Stable Quality VTE Prophylaxis VTE prophylaxis: mechanical ordered
[2025-06-11] MEDS: HYDROcodone/acetaminophen (*CRX) 5-325 MG TABLET 1 TAB PO (17:04)
== END 2025-06-11 19:01 | disposition home or self-care (01) ==
PROVIDERS: Admitting Provider Surgery; Visit Provider Surgery
PROC: 0DTJ4ZZ Resection of Appendix, Percutaneous Endoscopic Approach (ICD-10-PCS; CPT 44970; principal; 2025-06-11 08:30)
DX: K35.30 Acute appendicitis with localized peritonitis, without perforation or gangrene (principal)
CPT/HCPCS: 44970; 36415; 80048; 85027; 88304; 96365; 96375; 96376; A9270; G0378; J0330; J1100; J2003; J2004; J2250; J2270; J2405; J2543; J2704; J3010; J7120